=== PATIENT | female | born 1955 | race Caucasian/White ===

== ENCOUNTER 2025-01-27 11:53 | Outpatient (OUT) | payer MEDICARE, OTHER, SELFPAY ==
--- NOTE | 2025-01-27 12:07 | XR_ITS ---
[facility] [id number] Patient Name: EDGAR ALEXANDER MRN: [id number] date: 1955 Sex: F Assigned Patient Location: [facility] Current Patient Location: [facility] Accession/Order Number: [id number] Exam Date: 01/27/2025 12:15 Report Date: 01/27/2025 12:32 At the request of: TRISTAN STROUD DPM Procedure: XR foot ARLET min 3V BILATERAL FEET - 3 views each COMPARISON: None CLINICAL DATA: Bilateral chronic foot pain. Lump at the left first toe Weightbearing AP, lateral and oblique views were obtained. There are no acute fractures or dislocation. There is joint space narrowing and hypertrophy at the first metatarsal phalangeal joints on both sides, left greater than right. No focal soft tissue swelling is visualized. XR/XR foot ARLET min 3V IMPRESSION: DEGENERATIVE CHANGE AT THE FIRST METATARSAL PHALANGEAL JOINTS, LEFT WORSE THAN RIGHT Impression dictated by: Iveth Wilcox M.D. 01/27/2025 12:32 PM Dictation Location: [place] Electronically authenticated by: [id number] Date: 01/27/2025 12:32
== END 2025-01-27 11:54 | disposition home or self-care (01) ==
LOC: RAD 12:02
PROVIDERS: PCP Internal Medicine; Visit Provider Podiatrist Foot & Ankle Surgery
DX: M79.672 Pain in left foot (principal); M19.072 Primary osteoarthritis, left ankle and foot
CPT/HCPCS: 73630